=== PATIENT | male | born 1960 | race Caucasian/White ===

== ENCOUNTER → 2018-02-15 16:02 | Outpatient (CLI) | payer OTHER, SELFPAY ==
--- NOTE | 2018-02-15 16:08 | DI.RAD.S_ITS ---
PROCEDURE: XR LUMBAR SPINE 2-3V INDICATIONS: 57-year-old male with low back pain for 6 months. TECHNIQUE: 3 views of the lumbar spine were acquired. COMPARISON: [facility], , -SPINE 2-3 VIEWS, 08/22/2015, 13:16. FINDINGS: Bones: 5 [id number] vertebrae are present. There is lower lumbar spine facet joint degeneration. No degenerative disc narrowing. There is normal bony alignment. No vertebral body compression fractures. No suspicious bony lesions. Soft tissues: Overlying bowel gas pattern is normal. No suspicious soft tissue calcifications. IMPRESSION: Lower lumbar spine facet joint degeneration, with normal overall bony alignment. Dictated by: Telly Kenyon M.D. on 02/15/2018 at 16:37 Approved by: Telly Kenyon M.D. on 02/15/2018 at 16:38
== END ==
PROVIDERS: PCP Physician Assistant; Visit Provider Physician Assistant
DX: M47.816 Spondylosis without myelopathy or radiculopathy, lumbar region (principal); M54.5 Low back pain
CPT/HCPCS: 72100